=== PATIENT | male | born 2005 | race Two or more races ===

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

== ENCOUNTER 2024-04-11 13:19 | Emergency (ER) | payer MEDICAID, OTHER ==
[~2024-04-11] VITALS: Ht 180.3 cm; Wt 116.3 kg
[2024-04-11 15:04] VITALS: BP 122/88; PULSE 116; RESP 16; TEMP 98.9; O2SAT 97
[2024-04-11 17:06] LABS: Rapid Strep A Screen-Throat Negative
[2024-04-11] MEDS ORDERED: AUG875T PO (17:20)
--- NOTE | 2024-04-11 17:20 | ED.PDOC ---
History of Present Illness HPI Comments 19-year-old male presents with 3 days of worsening for pain and painful swallowing. Patient reports the pain is starting to radiate up the right side of his face to his right ear. He denies any fever chills nausea vomiting diarrhea dysuria polyuria sick contacts or recent travel. Chief Complaint: Sore Throat Time Seen by MD: 13:24 Primary Care Provider: ? Allergies: Coded Allergies: NO KNOWN ALLERGIES (Unverified , 06/23/21) Mode of Arrival: Ambulatory Past Medical History PAST MEDICAL HISTORY: Denies Surgical History: Denies all surgeries Family History Family History: Unknown Social History Smoker: Non-Smoker Alcohol: Denies ETOH Use Drugs: Denies Drug Use Lives In: Home All Other Systems: Reviewed and Negative Physical Exam General Appearance: No Apparent Distress HEENT: Pharyngeal Erythema, Tonsillar Exudate, Other (No real appreciable abscess) Neck: Full Range of Motion, Non-Tender Respiratory: No Respiratory Distress Cardiovascular: No Edema Breast Exam: Deferred Gastrointestinal: Non Tender Genitalia: Deferred Pelvic: Deferred Rectal: Deferred Extremities: Normal range of motion Neurologic: Motor Weakness, No Motor Deficits Cerebellar Function: NOT DONE Reflexes: NOT DONE Skin: Normal Color Lymphatic: Cervical Adenopathy (R) Was a procedure done? Was a procedure done?: No Differential Dx Considerations may include: Viral pharyngitis, bacterial pharyngitis, strep throat, epiglottitis, peritonsillar abscess X-Ray, Labs, Meds, VS Vital Signs Date Time Temp Pulse Resp B/P (MAP) Pulse Ox O2 Delivery O2 Flow Rate FiO2 04/11/24 15:04 116 16 97 Room Air 04/11/24 15:04 98.9 116 16 122/88 (99) 97 98.9 04/11/24 13:39 99.0 120 18 127/90 (102) 96 Lab Test 04/11/24 14:24 Range/Units Group A Streptococcus Rapid Negative Time of 1ST Reevaluation: 17:18 Reevaluation 1ST: Improved Patient Education/Counseling: Diagnosis, Treatment Family Education/Counseling: No Family Present Departure 1 Departure Time of Disposition: 17:18 (My judgment patient does not have an abscess or signs or symptoms concerning for epiglottitis. Patient is still able to tolerate p.o. and is feeling okay. Rapid strep is negative. We will empirically start patient on antibiotics discharge with close outpatient follow up) Impression: Primary Impression: Pharyngitis Qualified Codes: J02.9 - Acute pharyngitis, unspecified Disposition: HOME / SELF CARE / HOMELESS Condition: Stable Additional Instructions: Infection that your throat. You were prescribed antibiotics. Please take as directed as directed. For pain you can take the followinam: Ibuprofen 400mg with food Noon: Acetaminophen 1000mg 4pm: Ibuprofen 400mg with food 8pm: Acetaminophen 1000mg You should follow up with your regular doctor within one week to ensure you are doing better. If your symptoms worsen or you have any other concerns then please return to the ER. e-Prescriptions Amoxicillin & Pot Clavulanate (AUGMENTIN TABLET) 875 Mg Tb 875 MG PO BID for 7 Days, #14 TAB Prov: ENOCH DAWSON MD 04/11/24 Discharged With: Self Critical Care Note Critical Care Time?: No Stability Stability form required: No ENOCH DAWSON MD Apr 11, 2024 17:20
[2024-04-11] MEDS: DexAMETHasone SOD PHOS 10MG/1ML VIAL INJ PO ONE (17:26)
[2024-04-11] MEDS: AMOXICILLIN/CLAVUL 875 MG TAB PO ONE (17:26)
== END 2024-04-11 17:35 | disposition home or self-care (01) ==
LOC: ER 13:19
DX: J02.9 Acute pharyngitis, unspecified (principal); H92.01 Otalgia, right ear; R51.9 Headache, unspecified
CPT/HCPCS: 87070; 87880; 99283; J1100